=== PATIENT | male | born 1965 | race Caucasian/White ===

== ENCOUNTER 2020-01-07 11:21 | Inpatient (IN) | payer OTHER ==
[~2020-01-07] VITALS: Ht 175.3 cm; Wt 99.6 kg
[2020-01-07] MEDS ORDERED: MIDAZOLAM HCL 2 MG/2 ML VIAL IVP ONE (12:00)
[2020-01-07] MEDS ORDERED: KETAMINE HCL 50 MG/ML 10 ML VIAL IVP ONE (12:00)
[2020-01-07] MEDS ORDERED: FentaNYL CITRATE-PF 100 MCG/2 ML VIAL IVP ONE (12:00)
[2020-01-07] MEDS ORDERED: 0.9% SODIUM CHLORIDE 10 ML SYRINGE IVP PRN ×2 (13:45→16:15)
[2020-01-07] MEDS ORDERED: ACETAMINOPHEN 325 MG TABLET PO ONE (14:00)
[2020-01-07] MEDS ORDERED: MORPHINE SULFATE 4 MG/ML SYRINGE IVP ONE ×2 (14:00→17:00)
[2020-01-07 14:02] LABS: BASOPHILS % (AUTO) 0.6 % (0.0-2.0); EOSINOPHILS % (AUTO) 1.2 % (1.0-6.0); HEMATOCRIT 39.2 % (41-53); HEMOGLOBIN 13.8 g/dL (13.5-17.5); LYMPHOCYTES # (AUTO) 2.1 K/uL (1.0-4.8); LYMPHOCYTES % (AUTO) 21.4 % (22.0-44.0); MEAN CORPUSCULAR HGB CONC 35.2 G/dL (31.0-37.0); MEAN CORPUSCULAR VOLUME 85 fL (80-100); MONOCYTES # (AUTO) 0.7 K/uL (0.1-1.0); MONOCYTES % (AUTO) 6.7 % (2.0-9.0); NEUTROPHILS # (AUTO) 6.9 K/uL (1.8-7.7); NEUTROPHILS % (AUTO) 70.1 % (40.0-70.0); PLATELET COUNT (AUTO) 205 K/uL (150-450)
[2020-01-07] MEDS ORDERED: SODIUM CHLORIDE 0.9% 100 ML ONE (14:02)
[2020-01-07] MEDS ORDERED: IOVERSOL 350 MG/ML 100 ML VIAL ONE (14:02)
[2020-01-07 14:11] LABS: ANION GAP 6 mmol/L (8-16); CALCIUM, TOTAL 8.2 mg/dL (8.8-10.5); CARBON DIOXIDE 27 mmol/L (22-29); CHLORIDE 105 mmol/L (98-107); CREATININE 0.82 mg/dL (0.60-1.30); GLOMERULAR FILTR. RATE CALC > 60 mL/min (>60); GLUCOSE,RANDOM 117 mg/dL (70-110); POTASSIUM 3.7 mmol/L (3.5-5.1); SODIUM SERUM 138 mmol/L (136-145); UREA NITROGEN, BLOOD 15 mg/dL (7-18)
[2020-01-07] MEDS ORDERED: CLINDAMYCIN 900 MG/D5% WATER 50 ML IV ONE (14:15)
[2020-01-07 14:18] LABS: ALANINE AMINOTRANSFERASE 24 U/L (12-78); ALBUMIN 3.5 g/dL (3.4-5.0); ALKALINE PHOSPHATASE 96 U/L (46-116); ASPARTATE AMINOTRANSFERASE 21 U/L (15-37); BILIRUBIN,TOTAL 0.5 mg/dL (0.1-1.0); PROTHROMBIN TIME 10.6 SEC (9.4-11.6)
[2020-01-07] MEDS ORDERED: PIPERACILLIN/TAZO 3.375 GM/D5W 50 ML IV SCH (14:30)
[2020-01-07 14:41] LABS: APPEARANCE,URINE TURBID (CLEAR); BILIRUBIN,URINE NEGATIVE (NEGATIVE); GLUCOSE, URINE (UA) NEGATIVE (NEGATIVE); KETONES,URINE NEGATIVE (NEGATIVE); LEUKOCYTE ESTERASE ,URINE LARGE (NEGATIVE); NITRATE,URINE POSITIVE (NEGATIVE); OCCULT BLOOD,URINE NEGATIVE (NEGATIVE); PROTEIN,URINE POS 1+ (NEGATIVE)
[2020-01-07 14:43] LABS: LACTIC ACID 0.9 mmol/L (0.4-2.0)
[2020-01-07 14:51] LABS: BACTERIA,URINE Many /HPF (None Seen); RBC,URINE 0-2 /HPF (0-2); SQUAMOUS EPITHELIAL CELL,UR Moderate /LPF (None Seen)
[2020-01-07] MEDS ORDERED: VANCOMYCIN HCL 1.5 GM in DEXTROSE 5%-WATER 250 ML IV ONE (15:00)
[2020-01-07] MEDS ORDERED: CLOTRIMAZOLE 1% 10 ML SOLUTION TP ONE (16:00)
[2020-01-07] MEDS ORDERED: ACETAMINOPHEN 325 MG TABLET PO PRN ×2 (16:15)
[2020-01-07] MEDS ORDERED: ONDANSETRON HCL 4 MG/2 ML VIAL IVP PRN ×2 (16:15)
[2020-01-07] MEDS ORDERED: MORPHINE SULFATE 2 MG/ML SYRINGE IVP PRN (16:15)
[2020-01-07] MEDS ORDERED: MAGNESIUM HYDROXIDE SUSPENSION 30 ML UDCUP PO PRN (16:15)
[2020-01-07] MEDS: SODIUM CHLORIDE 0.9% 1,000 ML IV SCH (16:32)
[2020-01-07 21:30] VITALS: BP 141/81
[2020-01-07] MEDS: PIPERACILLIN/TAZO 3.375 GM/D5W 50 ML IV SCH (21:48)
[2020-01-07] MEDS: DOCUSATE SODIUM 100 MG CAPSULE PO SCH (21:48)
[2020-01-08] MEDS ORDERED: VANCOMYCIN HCL 1.25 GM in DEXTROSE 5%-WATER 250 ML IV SCH ×2
[2020-01-08] MEDS: PIPERACILLIN/TAZO 3.375 GM/D5W 50 ML IV SCH ×4 (03:29→20:39)
[2020-01-08 03:46] VITALS: BP 141/83
[2020-01-08] MEDS: PANTOPRAZOLE SODIUM 40 MG/VIAL IVP SCH (08:25)
[2020-01-08] MEDS: DOCUSATE SODIUM 100 MG CAPSULE PO SCH ×2 (08:25→20:40)
[2020-01-08 08:31] VITALS: BP 147/95
[2020-01-08] MEDS ORDERED: IOVERSOL 350 MG/ML 150 ML VIAL ONE (09:30)
[2020-01-08] MEDS: SODIUM CHLORIDE 0.9% 1,000 ML IV SCH ×2 (11:25→15:03)
[2020-01-08] MEDS ORDERED: RINGERS SOLUTION,LACTATED 1,000 ML IV SCH (15:45)
[2020-01-08] MEDS ORDERED: SODIUM CL IRRIG SOLN BAG 3,000 ML IRRIG ONE (15:45)
[2020-01-08] MEDS ORDERED: IOHEXOL 240 MG/ML 20 ML VIAL ONE (15:45)
[2020-01-08] MEDS ORDERED: LIDOCAINE/PF 1% 30 ML VIAL ONE (15:59)
[2020-01-08] MEDS ORDERED: VANCOMYCIN HCL 1 GM/VIAL ONE (15:59)
[2020-01-08] MEDS ORDERED: BUPIVACAINE HCL/PF 0.25% 30 ML VIAL ONE (15:59)
[2020-01-08] MEDS ORDERED: BACITRACIN 50,000 UNITS/VIAL ONE (15:59)
[2020-01-08 16:01] VITALS: BP 107/58
[2020-01-08] MEDS ORDERED: HYDROmorphone 2 MG/ML SYRINGE IVP PRN (16:45)
[2020-01-08] MEDS ORDERED: FentaNYL CITRATE-PF 100 MCG/2 ML VIAL IVP PRN (16:45)
[2020-01-08] MEDS ORDERED: MEPERIDINE-PF 25 MG/ML VIAL IVP PRN (16:45)
[2020-01-08 17:55] VITALS: BP 128/77
[2020-01-08 19:39] VITALS: BP 138/80
[2020-01-08] MEDS ORDERED: OXYGEN THERAPY IH SCH (20:00)
[2020-01-08] MEDS: HYDROCODONE/ACETAMINOPHEN 5-325 MG TABLET PO PRN (20:53)
[2020-01-09] MEDS: SODIUM CHLORIDE 0.9% 1,000 ML IV SCH ×3 (01:01→20:11)
[2020-01-09] MEDS: PIPERACILLIN/TAZO 3.375 GM/D5W 50 ML IV SCH ×4 (03:01→20:11)
[2020-01-09 04:10] VITALS: BP 104/58
[2020-01-09] MEDS: HYDROCODONE/ACETAMINOPHEN 5-325 MG TABLET PO PRN ×2 (04:32→15:12)
[2020-01-09 06:36] LABS: BASOPHILS % (AUTO) 0.4 % (0.0-2.0); EOSINOPHILS % (AUTO) 0 % (1.0-6.0); HEMATOCRIT 40.3 % (41-53); HEMOGLOBIN 14.4 g/dL (13.5-17.5); LYMPHOCYTES # (AUTO) 1.2 K/uL (1.0-4.8); MEAN CORPUSCULAR HGB CONC 35.7 G/dL (31.0-37.0); MEAN CORPUSCULAR VOLUME 84 fL (80-100); MONOCYTES # (AUTO) 0.3 K/uL (0.1-1.0); MONOCYTES % (AUTO) 2.6 % (2.0-9.0); NEUTROPHILS # (AUTO) 8.2 K/uL (1.8-7.7); PLATELET COUNT (AUTO) 222 K/uL (150-450); RED CELL DISTRIBUTION WIDTH 13.7 % (11.5-14.5)
[2020-01-09 06:56] LABS: ALANINE AMINOTRANSFERASE 20 U/L (12-78); ALBUMIN 3.1 g/dL (3.4-5.0); ALKALINE PHOSPHATASE 98 U/L (46-116); ANION GAP 4 mmol/L (8-16); ASPARTATE AMINOTRANSFERASE 18 U/L (15-37); BILIRUBIN,TOTAL 0.5 mg/dL (0.1-1.0); CALCIUM, TOTAL 8.6 mg/dL (8.8-10.5); CARBON DIOXIDE 28 mmol/L (22-29); CHLORIDE 106 mmol/L (98-107); GLOMERULAR FILTR. RATE CALC > 60 mL/min (>60); GLUCOSE,RANDOM 132 mg/dL (70-110); POTASSIUM 4.1 mmol/L (3.5-5.1); SODIUM SERUM 138 mmol/L (136-145); TOTAL PROTEIN, SERUM 6.7 g/dL (6.4-8.2); UREA NITROGEN, BLOOD 15 mg/dL (7-18)
[2020-01-09 07:37] LABS: HEMOGLOBIN A1C 5.7 % (3.8-5.6)
[2020-01-09] MEDS: PANTOPRAZOLE SODIUM 40 MG/VIAL IVP SCH (08:02)
[2020-01-09] MEDS: DOCUSATE SODIUM 100 MG CAPSULE PO SCH ×2 (08:03→20:12)
[2020-01-09] MEDS: MULTIVITAMINS WITH MINERALS, THERAPEUTIC TABLET PO SCH (08:03)
[2020-01-09 08:18] VITALS: BP 125/70
[2020-01-09 15:25] VITALS: BP 125/61
[2020-01-09 20:42] VITALS: BP 121/79
[2020-01-10] MEDS: PIPERACILLIN/TAZO 3.375 GM/D5W 50 ML IV SCH ×4 (02:53→20:28)
[2020-01-10 05:01] VITALS: BP 113/56
[2020-01-10 07:38] VITALS: BP 128/77
[2020-01-10] MEDS: DOCUSATE SODIUM 100 MG CAPSULE PO SCH ×2 (07:56→20:28)
[2020-01-10] MEDS: MULTIVITAMINS WITH MINERALS, THERAPEUTIC TABLET PO SCH (07:56)
[2020-01-10] MEDS: PANTOPRAZOLE SODIUM 40 MG/VIAL IVP SCH (07:57)
[2020-01-10] MEDS: SODIUM CHLORIDE 0.9% 1,000 ML IV SCH (08:54)
[2020-01-10] MEDS: HYDROCODONE/ACETAMINOPHEN 5-325 MG TABLET PO PRN ×2 (08:54→18:21)
[2020-01-10 11:30] VITALS: BP 124/74
[2020-01-10 17:09] VITALS: BP 141/90
[2020-01-10 20:00] VITALS: BP 130/80
[2020-01-11] MEDS ORDERED: SODIUM CHLORIDE 0.9% 500 ML IV ONE (02:41)
[2020-01-11] MEDS: PIPERACILLIN/TAZO 3.375 GM/D5W 50 ML IV SCH ×2 (03:24→08:15)
[2020-01-11 04:00] VITALS: BP 105/59
[2020-01-11] MEDS: DOCUSATE SODIUM 100 MG CAPSULE PO SCH ×2 (08:15→20:01)
[2020-01-11] MEDS: PANTOPRAZOLE SODIUM 40 MG/VIAL IVP SCH (08:15)
[2020-01-11] MEDS: MULTIVITAMINS WITH MINERALS, THERAPEUTIC TABLET PO SCH (08:15)
[2020-01-11 08:54] VITALS: BP 148/94
[2020-01-11] MEDS: HYDROCODONE/ACETAMINOPHEN 5-325 MG TABLET PO PRN (12:28)
[2020-01-11] MEDS: SULFAMETHOX/TRIMETH DS 800-160 MG/TABLET PO SCH ×2 (12:28→20:01)
[2020-01-11 16:12] VITALS: BP 144/92
[2020-01-11 18:22] VITALS: BP 128/79
[2020-01-11 20:00] VITALS: BP 142/83
[2020-01-12 07:04] LABS: BASOPHILS % (AUTO) 0.6 % (0.0-2.0); EOSINOPHILS % (AUTO) 2.6 % (1.0-6.0); HEMATOCRIT 42.6 % (41-53); HEMOGLOBIN 14.9 g/dL (13.5-17.5); LYMPHOCYTES # (AUTO) 2.2 K/uL (1.0-4.8); LYMPHOCYTES % (AUTO) 30.9 % (22.0-44.0); MEAN CORPUSCULAR HEMOGLOBIN 29.8 pg (26.0-34.0); MEAN CORPUSCULAR HGB CONC 34.9 G/dL (31.0-37.0); MEAN CORPUSCULAR VOLUME 85 fL (80-100); MONOCYTES # (AUTO) 0.5 K/uL (0.1-1.0); MONOCYTES % (AUTO) 7.6 % (2.0-9.0); NEUTROPHILS # (AUTO) 4.2 K/uL (1.8-7.7); NEUTROPHILS % (AUTO) 58.3 % (40.0-70.0); PLATELET COUNT (AUTO) 228 K/uL (150-450); RED BLOOD CELL COUNT(AUTO) 4.99 MIL/uL (4.50-5.90); RED CELL DISTRIBUTION WIDTH 14.1 % (11.5-14.5)
[2020-01-12 07:08] LABS: ANION GAP 6 mmol/L (8-16); CALCIUM, TOTAL 8.9 mg/dL (8.8-10.5); CARBON DIOXIDE 28 mmol/L (22-29); CHLORIDE 106 mmol/L (98-107); CREATININE 0.99 mg/dL (0.60-1.30); GLOMERULAR FILTR. RATE CALC > 60 mL/min (>60); GLUCOSE,RANDOM 100 mg/dL (70-110); POTASSIUM 4.3 mmol/L (3.5-5.1); SODIUM SERUM 140 mmol/L (136-145); UREA NITROGEN, BLOOD 13 mg/dL (7-18)
[2020-01-12] MEDS: DOCUSATE SODIUM 100 MG CAPSULE PO SCH ×2 (08:44→21:43)
[2020-01-12] MEDS: HYDROCODONE/ACETAMINOPHEN 5-325 MG TABLET PO PRN ×3 (08:44→21:43)
[2020-01-12] MEDS: PANTOPRAZOLE SODIUM 40 MG DR TABLET PO SCH (08:44)
[2020-01-12] MEDS: MULTIVITAMINS WITH MINERALS, THERAPEUTIC TABLET PO SCH (08:44)
[2020-01-12] MEDS: SULFAMETHOX/TRIMETH DS 800-160 MG/TABLET PO SCH ×2 (08:44→21:43)
[2020-01-12 11:21] VITALS: BP 133/76
[2020-01-12 14:55] VITALS: BP 124/79
[2020-01-12 15:06] VITALS: BP 124/79
[2020-01-12 20:40] VITALS: BP 126/83
[2020-01-12 23:50] VITALS: BP 109/63
[2020-01-13 05:10] VITALS: BP 135/80
[2020-01-13 08:43] VITALS: BP 123/79
[2020-01-13] MEDS: PANTOPRAZOLE SODIUM 40 MG DR TABLET PO SCH (09:44)
[2020-01-13] MEDS: DOCUSATE SODIUM 100 MG CAPSULE PO SCH ×2 (09:44→21:59)
[2020-01-13] MEDS: SULFAMETHOX/TRIMETH DS 800-160 MG/TABLET PO SCH ×2 (09:44→21:59)
[2020-01-13] MEDS: MULTIVITAMINS WITH MINERALS, THERAPEUTIC TABLET PO SCH (09:44)
[2020-01-13 17:19] VITALS: BP 137/76
[2020-01-13 20:32] VITALS: BP 123/51
[2020-01-14 04:51] VITALS: BP 127/72
[2020-01-14 08:27] VITALS: BP 123/69
[2020-01-14] MEDS: PANTOPRAZOLE SODIUM 40 MG DR TABLET PO SCH (08:48)
[2020-01-14] MEDS: SULFAMETHOX/TRIMETH DS 800-160 MG/TABLET PO SCH (08:48)
[2020-01-14] MEDS: DOCUSATE SODIUM 100 MG CAPSULE PO SCH (08:48)
[2020-01-14] MEDS: MULTIVITAMINS WITH MINERALS, THERAPEUTIC TABLET PO SCH (08:48)
[2020-01-14] MEDS ORDERED: SULF1TAB42 PO (09:31)
[2020-01-14] MEDS ORDERED: DOCU-275 PO (09:32)
[2020-01-14] MEDS ORDERED: MULT-248 PO (09:32)
[2020-01-14] MEDS ORDERED: ACET-784 PO (09:33)
== END 2020-01-14 13:20 | DRG 603 ==
LOC: EMS 11:23 → 6N 20:00
PROVIDERS: ADMIT Internal Medicine; ATTEND Internal Medicine
PROC: 0T9B80Z Drainage of Bladder with Drainage Device, Via Natural or Artificial Opening Endoscopic (ICD-10-PCS; 2020-01-08)
PROC: 0TJB8ZZ Inspection of Bladder, Via Natural or Artificial Opening Endoscopic (ICD-10-PCS; principal; 2020-01-08 16:00)
DX: L02.215 Cutaneous abscess of perineum (principal); N39.0 Urinary tract infection, site not specified; N49.2 Inflammatory disorders of scrotum; N35.919 Unspecified urethral stricture, male, unspecified site; Z03.818 Encounter for observation for suspected exposure to other biological agents ruled out; F17.210 Nicotine dependence, cigarettes, uncomplicated; R33.9 Retention of urine, unspecified
CPT/HCPCS: 74177; 76870; 83036; 83605; 87040; 87081; 87086; 97116; 97162; 97530; C9113; J2250; J2270; J2543; J3010; J3370; J3490; J7030; J7040; J7050; J7060; J7120; Q9966; 36415-L1; 36415-TC; 71045-TC; U0003-CS

== ENCOUNTER 2020-01-14 21:08 | Emergency (ER) | payer OTHER ==
[~2020-01-14] VITALS: Ht 175.3 cm; Wt 95.4 kg
[~2020-01-14 21:08] MED LIST: ACET-784 PO; DOCU-275 PO; MULT-248 PO; SULF1TAB42 PO
[2020-01-14] MEDS ORDERED: LIDOCAINE/PF 1% 2 ML VIAL IM ONE (23:30)
[2020-01-14] MEDS ORDERED: CefTRIAXone SODIUM 1 GM/VIAL IM ONE (23:30)
[2020-01-14] MEDS ORDERED: HYDROmorphone 2 MG/ML SYRINGE IM ONE (23:30)
[2020-01-14] MEDS ORDERED: AMOX TR/POT CLAV 875 MG/125 MG TABLET PO ONE (23:30)
[2020-01-14] MEDS ORDERED: ONDANSETRON HCL 4 MG/2 ML VIAL IM ONE (23:30)
[2020-01-15 01:08] VITALS: BP 114/65
== END 2020-01-15 01:07 | disposition home or self-care (01) ==
LOC: EMS 21:08
DX: R33.9 Retention of urine, unspecified (principal); F17.210 Nicotine dependence, cigarettes, uncomplicated; Z79.899 Other long term (current) drug therapy
CPT/HCPCS: 96372; 99284; J0696; J1170; J2405; J3490